=== PATIENT | male | born 1960 | race Caucasian/White ===

== ENCOUNTER 2022-03-06 19:20 | Inpatient (IN) | payer BC ==
[~2022-03-06] VITALS: Ht 167.6 cm; Wt 67.1 kg
[2022-03-06 19:31] VITALS: BP_SYST 149
[2022-03-06] MEDS ORDERED: cefTRIAXone 1 GM IVPB PREMIX 50 ML IV ONE (19:45)
[2022-03-06] MEDS ORDERED: ALBUTEROL SULFATE 0.083% 2.5 MG/3 ML VIAL.NEB INH ONE (19:45)
[2022-03-06] MEDS ORDERED: IPRATROPIUM BROM 0.5 MG/2.5 ML VIAL.NEB (ATROVENT) INH ONE (19:45)
[2022-03-06] MEDS ORDERED: DEXAMETHASONE SOD PHOSPHATE 10 MG/ML VIAL IVP ONE (20:00)
[2022-03-06] MEDS ORDERED: MAGNESIUM SULFATE 50 ML IV ONE (20:15)
[2022-03-06] MEDS ORDERED: NACL 0.9% 1,000 ML IV ONE (20:15)
[2022-03-06 20:20] LABS: HEMATOCRIT 39.9 % (36-54); HEMOGLOBIN 13.1 g/dL (14.0-18.0); MEAN CORPUSCULAR HEMOGLOBIN 27 pg (27-31); MEAN CORPUSCULAR HGB CONC 33 % (32-36); MEAN CORPUSCULAR VOLUME 83 fL (79.0-98.0); PLATELET COUNT (AUTO) 364 K/uL (130-430); RED BLOOD CELL COUNT(AUTO) 4.79 MIL/uL (4.2-6.2); RED CELL DISTRIBUTION WIDTH 14.1 % (9.0-15.0); WHITE BLOOD COUNT (AUTO) 23.6 K/uL (4.8-10.8)
[2022-03-06] MEDS ORDERED: dilTIAZem HCL IVP 5 MG/ML VIAL IVP ONE (20:30)
[2022-03-06 20:31] LABS: ANION GAP 7 (5-15); CALCIUM 9.9 mg/dL (8.4-11.0); CHLORIDE 96 mmol/L (98-107); CREATININE 0.84 mg/dL (0.55-1.30); GLUCOSE 304 mg/dL (70-99); UREA NITROGEN, BLOOD 24 mg/dL (8-21)
[2022-03-06 20:34] LABS: GFR AFRICAN AMERICAN 119 mL/min (>90)
[2022-03-06 20:40] LABS: ALANINE AMINOTRANSFERASE 49 U/L (12-78); ASPARTATE AMINOTRANSFERASE 33 U/L (10-37); TOTAL BILIRUBIN 0.6 mg/dL (0.0-1.0)
[2022-03-06] MEDS ORDERED: iohexoL 350 mgI/mL, 100 ML INFUS..BTL IV ONE ×2 (21:08→23:07)
[2022-03-06 21:21] LABS: BAND % (MANUAL) 3 % (0-6); BASOPHILS % (MANUAL) 0 % (0-2); EOSINOPHILS % (MANUAL) 0 % (0-7); LYMPHOCYTES % (MANUAL) 3 % (20-46); MONOCYTES % (MANUAL) 3 % (0-11)
[2022-03-06] MEDS ORDERED: LORazepam 2 MG/ML VIAL IVP ONE ×2 (22:30→23:15)
[2022-03-06] MEDS ORDERED: LORazepam 2 MG/ML VIAL ONE (23:14)
[2022-03-07] MEDS ORDERED: dilTIAZem HCL IVP 5 MG/ML VIAL IVP ONE (00:30)
[2022-03-07] MEDS ORDERED: ALBU90AE INH (06:19)
[2022-03-07] MEDS ORDERED: FLUT1DIS3 IH (06:19)
[2022-03-07] MEDS ORDERED: IPRATROPIUM/ALBUTEROL SULFATE 3 ML AMPUL.NEB (DUONEB) ONE (08:15)
[2022-03-07 09:54] VITALS: BP_SYST 152
[2022-03-07] MEDS ORDERED: AZITHROMYCIN 250 MG in NS 250 ML IV ONE (10:15)
[2022-03-07] MEDS: ALBUTEROL SULFATE 0.083% 2.5 MG/3 ML VIAL.NEB INH PRN ×2 (10:29→18:47)
[2022-03-07] MEDS: IPRATROPIUM BROM 0.5 MG/2.5 ML VIAL.NEB (ATROVENT) INH PRN ×2 (10:30→18:47)
[2022-03-07] MEDS ORDERED: cefTRIAXone 1 GM IVPB PREMIX 50 ML IV SCH (11:15)
[2022-03-07] MEDS ORDERED: *HEPARIN PER PHARMACY XX ONE (11:15)
[2022-03-07] MEDS ORDERED: AZITHROMYCIN 250 MG in NS 250 ML IV SCH (11:15)
[2022-03-07] MEDS ORDERED: DIATR MEGLU/DIATRIZ SOD 30 ML SOLUTION PO ONE (11:19)
[2022-03-07] MEDS ORDERED: METOPROLOL SUCCINATE 25 MG TAB.SR.24H (TOPROL XL) PO ONE (11:30)
[2022-03-07 11:34] LABS: FREE T4 (FREE THYROXINE) 1.2 ng/dL (0.6-1.6); THYROID STIMULATING HORMONE 1.34 uIu/mL (0.34-4.82)
[2022-03-07 12:28] VITALS: BP_SYST 127
[2022-03-07] MEDS: DILTIAZEM HCL 30 MG TABLET PO SCH ×2 (12:33→17:17)
[2022-03-07] MEDS ORDERED: HEPARIN SODIUM,PORCINE 2000 UNITS/0.4 ML BOLUS IVP PRN (12:45)
[2022-03-07] MEDS ORDERED: DIPHENHYDRAMINE INJ 50 MG/ML VIAL IVP ONE ×2 (12:45)
[2022-03-07] MEDS ORDERED: HEPARIN SODIUM,PORCINE 3000 UNITS/0.6 ML BOLUS IVP PRN (12:45)
[2022-03-07] MEDS: AZITHROMYCIN IV SCH (13:04)
[2022-03-07] MEDS: D5W IV SCH (13:04)
[2022-03-07] MEDS ORDERED: HEPARIN 25,000 UNITS in 250 ML PREMIX IV PRN (13:30)
[2022-03-07] MEDS ORDERED: HEPARIN SODIUM,PORCINE 5,000 UNITS/ML VIAL IVP ONE (13:30)
[2022-03-07 16:00] VITALS: BP_SYST 132
[2022-03-07 20:00] VITALS: BP_SYST 111
[2022-03-08] MEDS: DILTIAZEM HCL 30 MG TABLET PO SCH ×5 (00:01→23:53)
[2022-03-08 00:13] VITALS: BP_SYST 124
[2022-03-08] MEDS ORDERED: IBUPROFEN 400 MG TABLET PO PRN (00:30)
[2022-03-08] MEDS: TEMAZEPAM 7.5 MG CAPSULE PO PRN ×2 (01:14→21:22)
[2022-03-08 07:07] LABS: EOSINOPHILS % (AUTO) 0.1 % (0.0-4.0); HEMATOCRIT 40.8 % (36-54); HEMOGLOBIN 13.6 g/dL (14.0-18.0); LYMPHOCYTES # (AUTO) 1.2 K/uL (1.0-5.5); LYMPHOCYTES % (AUTO) 5.4 % (20.5-51.5); MEAN CORPUSCULAR HEMOGLOBIN 28 pg (27-31); MEAN CORPUSCULAR HGB CONC 33 % (32-36); MEAN CORPUSCULAR VOLUME 83 fL (79.0-98.0); MONOCYTES # (AUTO) 2.6 K/uL (0.0-1.0); MONOCYTES % (AUTO) 11.5 % (1.7-9.3); NEUTROPHILS # (AUTO) 18.9 K/uL (1.8-7.7); PLATELET COUNT (AUTO) 309 K/uL (130-430); RED BLOOD CELL COUNT(AUTO) 4.92 MIL/uL (4.2-6.2); WHITE BLOOD COUNT (AUTO) 22.8 K/uL (4.8-10.8)
[2022-03-08 07:36] LABS: INR 1.1 (0.80-1.20)
[2022-03-08 07:40] LABS: CALCIUM 9.1 mg/dL (8.4-11.0); CREATININE 0.71 mg/dL (0.55-1.30)
[2022-03-08 07:50] VITALS: BP_SYST 110
[2022-03-08] MEDS: METOPROLOL SUCCINATE 25 MG TAB.SR.24H (TOPROL XL) PO SCH (10:28)
[2022-03-08] MEDS: ALBUTEROL SULFATE 0.083% 2.5 MG/3 ML VIAL.NEB INH PRN ×4 (10:42→19:55)
[2022-03-08] MEDS: IPRATROPIUM BROM 0.5 MG/2.5 ML VIAL.NEB (ATROVENT) INH PRN ×4 (10:43→19:55)
[2022-03-08 12:00] VITALS: BP_SYST 126
[2022-03-08] MEDS ORDERED: SACUBITRIL/VALSARTAN 24 MG-26 MG 1 TABLET PO ONE (12:00)
[2022-03-08] MEDS: D5W IV SCH (12:11)
[2022-03-08] MEDS: AZITHROMYCIN IV SCH (12:11)
[2022-03-08] MEDS: PIPERACILLIN/TAZO 3.375/DEX-IS 50 ML IV SCH ×2 (14:27→21:23)
[2022-03-08 17:30] VITALS: BP_SYST 134
[2022-03-08 20:00] VITALS: BP_SYST 108
[2022-03-08] MEDS: SACUBITRIL/VALSARTAN 24 MG-26 MG 1 TABLET PO SCH (21:23)
[2022-03-08] MEDS: METHYLPREDNISOLONE SOD SUCC 40 MG/ML VIAL IVP SCH (21:23)
[2022-03-08 23:58] VITALS: BP_SYST 135
[2022-03-09 00:04] VITALS: BP_SYST 135
[2022-03-09] MEDS: METHYLPREDNISOLONE SOD SUCC 40 MG/ML VIAL IVP SCH ×3 (05:41→22:00)
[2022-03-09] MEDS: DILTIAZEM HCL 30 MG TABLET PO SCH ×3 (05:42→18:29)
[2022-03-09] MEDS: PIPERACILLIN/TAZO 3.375/DEX-IS 50 ML IV SCH ×3 (05:42→21:59)
[2022-03-09] MEDS: METOPROLOL SUCCINATE 25 MG TAB.SR.24H (TOPROL XL) PO SCH (09:23)
[2022-03-09] MEDS: SACUBITRIL/VALSARTAN 24 MG-26 MG 1 TABLET PO SCH ×2 (09:24→21:59)
[2022-03-09 11:31] VITALS: BP_SYST 103
[2022-03-09] MEDS: D5W IV SCH (14:00)
[2022-03-09] MEDS: AZITHROMYCIN IV SCH (14:00)
[2022-03-09] MEDS: IPRATROPIUM BROM 0.5 MG/2.5 ML VIAL.NEB (ATROVENT) INH PRN (17:48)
[2022-03-09] MEDS: ALBUTEROL SULFATE 0.083% 2.5 MG/3 ML VIAL.NEB INH PRN (17:48)
[2022-03-09 17:55] VITALS: BP_SYST 116
[2022-03-09] MEDS ORDERED: APIXABAN 2.5 MG TABLET PO SCH (21:00)
== END 2022-03-09 22:55 | disposition short-term general hospital (02) | DRG 802 ==
LOC: SED 19:20 → STU 03-07 05:58
PROVIDERS: ADMIT Internal Medicine; ATTEND Internal Medicine
PROC: 07B53ZX Excision of Right Axillary Lymphatic, Percutaneous Approach, Diagnostic (ICD-10-PCS; principal; 2022-03-08)
PROC: 5A09357 Assistance with Respiratory Ventilation, Less than 24 Consecutive Hours, Continuous Positive Airway Pressure (ICD-10-PCS; 2022-03-08)
PROC: 5A09357 Assistance with Respiratory Ventilation, Less than 24 Consecutive Hours, Continuous Positive Airway Pressure (ICD-10-PCS; 2022-03-09)
DX: R59.9 Enlarged lymph nodes, unspecified (principal); J96.01 Acute respiratory failure with hypoxia; J44.1 Chronic obstructive pulmonary disease with (acute) exacerbation; C34.90 Malignant neoplasm of unspecified part of unspecified bronchus or lung; I87.1 Compression of vein; N40.0 Benign prostatic hyperplasia without lower urinary tract symptoms; K80.20 Calculus of gallbladder without cholecystitis without obstruction; Z20.822 Contact with and (suspected) exposure to COVID-19; Z91.013 Allergy to seafood; Z79.899 Other long term (current) drug therapy
CPT/HCPCS: 36415; 71045; 71260-TC; 71275; 76376; 80048; 80053; 83605; 83735; 83880; 84439; 84443; 84484; 85007; 85025; 85027; 85379; 85610-TC; 85730-TC; 87040; 88307; 88341; 88342; 93005; 93306; 93970; 94640; 94660; 94760; 96365; 96375; 96376; 99291; 99292; G0378; J0456; J0696; J1030; J1100; J1200; J1644; J2060; J2543; J3475; J3490; J7050; J7060; J7613; Q9964; Q9967; U0003